=== PATIENT | female | born 1940 | race Caucasian/White ===

== ENCOUNTER 2018-03-23 08:49 | Outpatient (CLI) | payer MEDICARE, OTHER ==
[~2018-03-23 08:49] MED LIST: HYDR1TAB PO; PT DOES NOT RECALL
== END 2018-03-23 23:59 | disposition home or self-care (01) ==
LOC: MRI 08:49
DX: S83.242A Other tear of medial meniscus, current injury, left knee, initial encounter (principal); M48.061 Spinal stenosis, lumbar region without neurogenic claudication; M51.36 Other intervertebral disc degeneration, lumbar region; M25.462 Effusion, left knee; M65.862 Other synovitis and tenosynovitis, left lower leg; M17.12 Unilateral primary osteoarthritis, left knee; X58.XXXA Exposure to other specified factors, initial encounter; Y93.89 Activity, other specified; Y92.89 Other specified places as the place of occurrence of the external cause; Y99.8 Other external cause status
CPT/HCPCS: 72148-TC; 73721-TC

== ENCOUNTER 2018-04-14 11:07 | Inpatient (IN) | payer OTHER, MEDICARE ==
--- NOTE | 2018-04-13 19:30 | NUR ---
RN NOTES RECEIVED PATIENT IN BED AWAKE, AO X 3, ABLE TO MAKE NEEDS KNOWN. NO ACUTE DISTRESS NOTED. DENIES ANY PAIN AT THIS TIME. DENIES ANY HEADACHE, DIZZINESS. IV SITE PATENT, INTACT; FLUSHED. SAFETY REMINDERS GIVEN. ON LOW BED WITH BILATERAL UPPER SIDE RAILS UP. CALL BARBOZA WITHIN EASY REACH. WILL CONTINUE TO MONITOR.
[~2018-04-14] VITALS: Ht 152.4 cm; Wt 80.3 kg
--- NOTE | 2018-04-14 11:10 | NUR ---
TONY FROM HOME DT WORSENING RIGHT HIP PAIN, GLF 2 WEEKS AGO, NO RECENT TRAUMA. PT IS AWAKE AND ALERT, NOT IN DISTRESS. SKIN IS WARM TO TOUCH AND NON DIAPHORETIC. PATIENT IS AFEBRILE. VSS
[2018-04-14] MEDS ORDERED: IV NS 0.9% 1,000 ML BAG IV ONE (12:00)
--- NOTE | 2018-04-14 12:01 | NUR ---
pt unable to give urine sample at this moment, will try after ivfluids has been infused.
[2018-04-14 12:03] LABS: BASOPHILS # (AUTO) 0.1 /CMM (0.0-0.2); BASOPHILS % (AUTO) 1.1 % (0.0-2.0); EOSINOPHILS % (AUTO) 1.6 % (0.0-6.0); HEMATOCRIT 47 % (33-45); HEMOGLOBIN 14.9 g/dL (11.5-14.8); LYMPHOCYTES # (AUTO) 1.6 /CMM (0.8-4.8); LYMPHOCYTES % (AUTO) 35.3 % (20.0-44.0); MEAN CORPUSCULAR HEMOGLOBIN 28 PG (26.0-33.0); MEAN CORPUSCULAR HGB CONC 32 g/dl (31.0-36.0); MEAN CORPUSCULAR VOLUME 89 fL (82-100); MONOCYTES # (AUTO) 0.4 /CMM (0.1-1.30); MONOCYTES % (AUTO) 9.3 % (2.0-12.0); NEUTROPHILS # (AUTO) 2.4 /CMM (1.8-8.9); NEUTROPHILS % (AUTO) 52.7 % (43.0-81.0); PLATELET COUNT (AUTO) 185 /CMM (150-450); RED BLOOD CELL COUNT(AUTO) 5.27 MIL/uL (4.0-5.2); WHITE BLOOD COUNT (AUTO) 4.6 K/uL (4.3-11.0)
[2018-04-14 12:14] LABS: CARBON DIOXIDE 30 mmol/L (21-32); CHLORIDE 106 mmol/L (98-107); CREATININE 0.9 mg/dL (0.6-1.3); GLUCOSE 101 mg/dL (74-106); POTASSIUM 3.8 mmol/L (3.5-5.1); SODIUM SERUM 137 mmol/L (136-145); UREA NITROGEN, BLOOD 12 mg/dL (7-18)
[2018-04-14 12:19] LABS: ALANINE AMINOTRANSFERASE 21 U/L (12-78); ALBUMIN 3.4 g/dL (3.4-5.0); ALKALINE PHOSPHATASE 67 U/L (46-116); ASPARTATE AMINOTRANSFERASE 19 U/L (15-37); BILIRUBIN,DIRECT 0.1 mg/dL (0.0-0.2); BILIRUBIN,TOTAL 0.3 mg/dL (0.2-1.0); LIPASE 385 U/L (73-393)
[2018-04-14 12:21] LABS: TROPONIN I < 0.017 ng/mL (0.00-0.056)
[2018-04-14 12:46] LABS: APPEARANCE,URINE Clear (CLEAR); BILIRUBIN,URINE Negative (NEGATIVE); BLOOD, URINE Trace-lysed Ery/uL (NEGATIVE); COLOR,URINE Yellow (YELLOW); KETONES,URINE Negative (NEGATIVE); LEUKOCYTE ESTERASE ,URINE Trace (NEGATIVE); NITRITE, URINE Negative (NEGATIVE); PH,URINE 7.5 (5.0-8.0); PROTEIN,URINE Negative (NEGATIVE); UGLUCOSE Negative (NEGATIVE); UROBILINOGEN,URINE 0.2 EU/dL (0.2)
[2018-04-14 12:47] LABS: BACTERIA,URINE Few /HPF (None Seen); SQUAMOUS EPITHELIAL CELL,UR Few /HPF (None Seen)
--- NOTE | 2018-04-14 13:21 | NUR ---
CALLED [facility] HELPER STEEL FABRICATION WAS PAGED.
[2018-04-14] MEDS ORDERED: MECLIZINE HCL 25 MG TABLET PO ONE (13:30)
[2018-04-14] MEDS ORDERED: NITR0.4T48 SL (13:35)
[2018-04-14] MEDS ORDERED: MELO-107 PO (13:35)
[2018-04-14] MEDS ORDERED: NEBI5TAB8 PO (13:35)
[2018-04-14] MEDS ORDERED: CLON0.1T PO (13:35)
[2018-04-14] MEDS ORDERED: OLME40TA18 PO (13:35)
[2018-04-14] MEDS ORDERED: MEMA1CAP3 PO (13:35)
[2018-04-14] MEDS ORDERED: VORT5TAB PO (13:35)
[2018-04-14] MEDS ORDERED: LUBI24CA5 PO (13:35)
[2018-04-14] MEDS ORDERED: TRIA0.2585 PO (13:35)
[2018-04-14] MEDS ORDERED: ICOS1CAP PO (13:35)
[2018-04-14] MEDS ORDERED: ROSU10TA28 PO (13:35)
[2018-04-14] MEDS ORDERED: AMLO10TA2 PO (13:35)
[2018-04-14] MEDS ORDERED: TRAM50TA2 PO (13:35)
[2018-04-14] MEDS ORDERED: OMEP1CAP25 PO (13:35)
[2018-04-14] MEDS ORDERED: ONDANSETRON HCL/PF 4 MG/2 ML VIAL ONE (13:36)
[2018-04-14] MEDS ORDERED: MECLIZINE HCL 25 MG TABLET ONE (13:37)
[2018-04-14] MEDS ORDERED: ONDANSETRON HCL/PF 4 MG/2 ML VIAL IVP ONE (14:00)
--- NOTE | 2018-04-14 14:26 | NUR ---
report given to elina mcfarland
[2018-04-14] MEDS ORDERED: CLONIDINE HCL 0.1 MG TABLET PO PRN (14:30)
[2018-04-14] MEDS ORDERED: Z GUARD REMEDY 2 OZ OINT TP PRN (14:30)
[2018-04-14] MEDS ORDERED: HYDROCODONE/APAP 5/325MG 1 EACH TABLET PO PRN (14:30)
[2018-04-14] MEDS ORDERED: MAG HYDROX/AL HYDROX/SIMETH 30 ML UDC PO PRN (14:30)
[2018-04-14] MEDS ORDERED: ACETAMINOPHEN 325 MG TABLET PO PRN (14:30)
[2018-04-14] MEDS ORDERED: TRAMADOL HCL 50 MG TABLET PO PRN (14:30)
[2018-04-14] MEDS ORDERED: ZOLPIDEM TARTRATE 5 MG TABLET PO PRN (14:30)
[2018-04-14] MEDS ORDERED: NITROGLYCERIN 0.4 MG/TAB BOTTLE SL PRN (14:30)
[2018-04-14] MEDS ORDERED: ONDANSETRON HCL/PF 4 MG/2 ML VIAL IVP PRN (14:30)
[2018-04-14] MEDS ORDERED: MAGNESIUM HYDROXIDE 30 ML UDC PO PRN (14:30)
[2018-04-14 14:50] VITALS: BP 138/87
--- NOTE | 2018-04-14 14:50 | NUR ---
RECEIVED PATIENT FROM ER VIA [facility] IN STABLE CONDITION, WAS ABLE TO WALK FROM [facility] TO BED WITH THE ASSISTANCE OF ER NURSE. PATIENT A/OX4, ALBANIAN SPEAKING. ABLE TO MAKE NEEDS KNOWN. NOT IN ANY FORM OF DISTRESS, NO SOB. PAIN ON LEFT HIP 5/10 NOTED AND TOLERABLE AT THE MOMENT PER PATIENT, OFFERED PAIN MEDICATIONS BUT PATIENT REFUSED. TOLERATING ROOM AIR, SATTING AT 98%. IV SITE INTACT AND PATENT. KEPT PATIENT SAFE AND COMFORTABLE. SKIN PHOTOS TAKEN ON BILATERAL TOES, SMALL SCAB NOTED, AND PER PATIENT, SHE DOESNT HAVE ANY WOUNDS OR BRUISES. SKIN ASSESSMENT DONE (WITH RIVER CARTER PRESENT AT BEDSIDE). TELEMONITOR WAS PLACED, SINUSBRADY 58. ADMITTING ORDERS NOTED AND WILL CARRY OUT. ORIENT PATIENT IN THE ROOM. ALL BELONGINGS CHECKED AND NOTED ON CHECKLIST. BED IN LOW/LOCKED POSITION, SEMIFOWLERS, SDIERAILS UPX2, CALL LIGHT IN REACH. WILL CONTINUE TO MONIOTR ACCORDINGLY. Addendum: 04/14/18 at 1704 by CALIXTO HOGUE NOTED TO HAVE AN EXTERNAL EVP OPERATIONS IN PLACE ON LEFT CHEST WALL.
[2018-04-14] MEDS ORDERED: BYSTOLIC 5 MG PO SCH (15:00)
[2018-04-14] MEDS ORDERED: VORTIOXETINE 5 MG PO SCH (15:00)
[2018-04-14 16:00] VITALS: BP 146/65
[2018-04-14] MEDS ORDERED: AMITIZA PO SCH (17:00)
[2018-04-14] MEDS ORDERED: Medication Not On Formulary EA (Icosapent Ethyl (Vascepa) 1 GM) PO SCH (17:00)
[2018-04-14] MEDS: MEMANTINE HCL 5 MG TABLET PO SCH (17:50)
[2018-04-14] MEDS: LOSARTAN POTASSIUM 50 MG TABLET PO SCH (17:52)
[2018-04-14] MEDS: MECLIZINE HCL 12.5 MG TABLET PO PRN (17:52)
--- NOTE | 2018-04-14 17:59 | NUR ---
NOTIFIED PHARMACY,JA[facility], THAT PATIENT UNABLE TO PROVIDE HOME MEDS, NOBODY CAN BRING IT TO THE HOSPITAL, PATIENT LIVES ALONE.
--- NOTE | 2018-04-14 19:19 | NUR ---
PATIENT IN STABLE CONDITION. ALL NEEDS ATTENDED AND PROVIDED. ALL DUE MEDS GIVEN ORDERED. KEPT PATIENT SAFE AND COMFORTABLE. BED IN LOW/LOCKED POSITION. SIDERAILS UPX2, SEMIFOWLERS, CALL LIGHT IN REACH. ENDORSED TO NIGHT RN FOR DONTRELL
[2018-04-14 20:00] VITALS: BP 190/74
[2018-04-14] MEDS ORDERED: TRIAZOLAM 0.125 MG TABLET PO SCH (22:00)
[2018-04-14] MEDS ORDERED: MIRTAZAPINE 15 MG TABLET PO SCH (23:30)
--- NOTE | 2018-04-15 06:16 | NUR ---
RN NOTES PATIENT IN BED ASLEEP, EASILY AROUSABLE. RESPIRATIONS EVEN. NO SIGNS OF PAIN NOTED. NEEDS ATTENDED. SAFETY PRECAUTIONS AND COMFORT MEASURES IN PLACE. WILL GIVE REPORT TO DAY SHIFT FOR CONTINUITY OF CARE.
[2018-04-15 06:53] LABS: BASOPHILS % (AUTO) 0.9 % (0.0-2.0); EOSINOPHILS % (AUTO) 2.3 % (0.0-6.0); HEMATOCRIT 45 % (33-45); HEMOGLOBIN 14.4 g/dL (11.5-14.8); LYMPHOCYTES % (AUTO) 41.8 % (20.0-44.0); MEAN CORPUSCULAR HEMOGLOBIN 29 PG (26.0-33.0); MEAN CORPUSCULAR HGB CONC 32 g/dl (31.0-36.0); MEAN CORPUSCULAR VOLUME 92 fL (82-100); MONOCYTES # (AUTO) 0.4 /CMM (0.1-1.30); NEUTROPHILS # (AUTO) 2.2 /CMM (1.8-8.9); PLATELET COUNT (AUTO) 179 /CMM (150-450); RDW COEFFICIENT OF VARIATION 14.5 (11.5-15.0); WHITE BLOOD COUNT (AUTO) 4.7 K/uL (4.3-11.0)
[2018-04-15 07:10] LABS: CALCIUM, SERUM 8.5 mg/dL (8.5-10.1); CARBON DIOXIDE 29 mmol/L (21-32); CHLORIDE 107 mmol/L (98-107); CREATININE 0.8 mg/dL (0.6-1.3); GLUCOSE 89 mg/dL (74-106); MAGNESIUM 2.1 mg/dL (1.8-2.4); PHOSPHORUS 3.4 mg/dL (2.5-4.9); POTASSIUM 4.1 mmol/L (3.5-5.1); SODIUM SERUM 143 mmol/L (136-145); UREA NITROGEN, BLOOD 12 mg/dL (7-18)
--- NOTE | 2018-04-15 07:15 | NUR ---
MS RN OPENING NOTE RECEIVED PT IN BED, AWAKE AND ALERT, PRIMARILY SAUDI ARABIAN SPEAKING, ABLE TO MAKE NEEDS KNOWN. NO SIGNS OF ACUTE DISTRESS, BREATHING IS EVEN AND UNLABORED ON ROOM AIR AT THIS TIME, PT DENIES PAIN. L WRIST #20G IV IS SALINE LOCKED WITHOUT SIGNS OF REDNESS, SWELLING, OR PAIN. PLANS FOR POSSIBLE D/C TODAY. BED IS LOCKED AND IN LOWEST POSITION, SIDE RAILS UP X2, BED ALARM IS ON. WILL CONTINUE TO MONITOR.
[2018-04-15 07:19] LABS: CHOLESTEROL 210 mg/dL (<200); HDL CHOLESTEROL 61 mg/dL (40-60); LDL 140 mg/dL (0-99); TRIGLYCERIDES 89 mg/dL (30-150)
[2018-04-15] MEDS ORDERED: PANTOPRAZOLE 40 MG TABLET.DR PO SCH (07:30)
[2018-04-15 08:00] VITALS: BP 166/74
[2018-04-15] MEDS: LOSARTAN POTASSIUM 50 MG TABLET PO SCH (08:08)
[2018-04-15] MEDS: MEMANTINE HCL 5 MG TABLET PO SCH ×2 (08:08→08:21)
[2018-04-15] MEDS: DONEPEZIL 5 MG TABLET PO SCH ×2 (08:09→08:22)
[2018-04-15] MEDS ORDERED: MECL12.582 PO (08:56)
[2018-04-15] MEDS ORDERED: MELOXICAM 7.5 MG TABLET PO SCH (09:00)
[2018-04-15] MEDS ORDERED: AMLODIPINE BESYLATE 10 MG TABLET PO SCH (09:00)
[2018-04-15] MEDS ORDERED: ATORVASTATIN 10 MG TABLET PO SCH (09:00)
[2018-04-15 10:00] VITALS: BP 130/58
[2018-04-15] MEDS: MECLIZINE HCL 12.5 MG TABLET PO PRN (13:24)
--- NOTE | 2018-04-15 14:30 | NUR ---
M/S RN - Discharge Patient discharged home with home health ([facility]) in stable condition, afebrile, denies dizziness, no c/o any weakness, ambulatory with assist, denies pain, A/O x 3. Reviewed discharge instructions with patient and her friend Perlita. Patient made aware that she has an appt with [facility] on 04/18/18 at 14:00 PM. Written prescription for Meclizine given to patient. Patient was educated to seek immediate medical attention for chest pain, shortness or breath, confusion, weakness, dizziness, or any other emergent medical concern. All belongings with patient and she denies any missing items. Patient refused photos to be taken on her bilateral 5th toe scab. Discharge papers signed and copy was given per protocol. Accompanied patient to the lobby via wheelchair and transported via private car.
== END 2018-04-15 14:31 | disposition home health service (06) | DRG 111 ==
LOC: ER 11:08 → TELE 13:36 → MED 17:53
PROVIDERS: ADMIT Family Medicine; ATTEND Family Medicine
DX: H81.10 Benign paroxysmal vertigo, unspecified ear (principal); F03.90 Unspecified dementia, unspecified severity, without behavioral disturbance, psychotic disturbance, mood disturbance, and anxiety; E66.9 Obesity, unspecified; E78.5 Hyperlipidemia, unspecified; F32.9 Major depressive disorder, single episode, unspecified; I10 Essential (primary) hypertension; Z68.34 Body mass index [BMI] 34.0-34.9, adult; K58.9 Irritable bowel syndrome, unspecified
CPT/HCPCS: 36415; 70450-TC; 71045-TC; 72170-TC; 73560-TC; 80048-TC; 80061-TC; 80076-TC; 81000-TC; 83690-TC; 83735-TC; 84100-TC; 84484-TC; 85025-TC; 87081-TC; 87086-TC; A4606; J2405; J7030; J8597; Z7610